=== PATIENT | male | born 1975 | race Caucasian/White ===

== ENCOUNTER 2016-11-13 08:51 | Emergency (ER) | payer OTHER ==
[2016-11-13 09:00] VITALS: RESP 16
[2016-11-13] MEDS ORDERED: TDAP ADULT 0.5 ML INJ (BOOSTRIX) IM ONE (09:01)
--- NOTE | 2016-11-13 09:10 | EDPHY ---
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 Patient describes both a crushing as well as a twisting/wringing injury to the finger. He was otherwise well prior to the event. No fever, chills, chest pain, shortness of breath, palpitations, vomiting, diarrhea, urinary complaints, headache, lightheadedness. REVIEW OF SYSTEMS: Aside from elements discussed in the HPI, a comprehensive 10-point review of systems was reviewed and is negative. PAST MEDICAL HISTORY: Patient denies. SOCIAL HISTORY: Smoker. GENERAL APPEARANCE: Pleasant, alert, conversant. States his pain is 4/10. FOCUSED EXAM OF left hand: Deep laceration with some maceration of the tissue is present just at the PIP joint the dorsal surface of the left index finger. Bleeding is well controlled. Sensation is not intact at the distal tip. Neurovascular exam: Brisk capillary refill. Smoking Status: Current every day smoker Constitutional: Initial Vital Signs Temperature (C) 37 C 11/13/16 08:52 Heart Rate 110 H 11/13/16 08:52 Respiratory Rate 16 11/13/16 08:52 Blood Pressure 154/102 H 11/13/16 08:52 O2 Sat (%) 96 11/13/16 08:52 O2 Delivery Mode Room Air Allergies/Adverse Reactions: No Known Allergies Allergy (Verified 11/13/16 09:00) Home Medications: Medication Instructions Recorded Cephalexin [Keflex (RX)] 500 mg PO QID 7 Days 11/13/16 Medical Decision Making - Diagnostics Imaging Results: Imaging Impressions Finger X-Ray 11/13/16 09:00 Impression: 1. Complex fracture distal tuft left second distal phalanx with fracture fragment extending to the base of the nailbed. Procedures: Procedure: Laceration repair. The 2.5 cm laceration on the left index finger was anesthetized using Marcaine without epinephrine. The wound was cleaned and irrigated per nursing and tech documentation. Laceration was then draped and explored. Laceration extends across the proximal nail bed. Proximal nail has been avulsed. Fracture fragments are visible in the wound. 6 mm sliver of bone was removed as it was protruding from the laceration. Nail was trimmed. Skin lacerations on the radial and ulnar aspect of the nail were sutured with 5 0 Ethilon, simple interrupted. Intact nail was sutured onto the ulnar side of the finger with 5 0 Ethilon. Nail bed was repaired with simple Vicryl suture. Quarter-inch NuGauze was placed under the epicondyle fold. Wound was dressed with a Adaptic nonadherent gauze, tube gauze dressing, and splinted with a aluminum splint. ED Course/Re-evaluation: Digital block performed. Patient tolerated this well. 0.5% bupivacaine without epinephrine. X-ray obtained. Xray: Finger x-ray was obtained. I viewed the images myself on the PACS system. My interpretation of the images is: Distal tuft fracture, no injury noted to the PIP joint. The radiology interpretation is: Pending. I discussed the results with the patient. Patient received an IM injection of Ancef. Further exploration of the patient's injury demonstrates open fracture, bone fragments removed from the laceration, avulsion of the proximal nail, nail was trimmed, laceration to the nail bed was repaired. X-rays were reviewed with the patient. I reviewed the procedures performed. Patient was placed in a tube gauze dressing as well as a splint which was adequately providing support. Patient was referred to Dr. Madhav Gramajo for follow-up. He does know that he needs to contact his workman's compensation insurance to see if there is a preferred work comp and surgeon for him to follow up with. Patient was placed on Keflex. Differential Diagnosis: Differential diagnosis for the patient's injury was considered including but not limited to contusion, abrasion, laceration, fracture, open fracture, or dislocation. - Data Points Medications Given: Discontinued Medications Cefazolin Sodium (Ancef) 1,000 mg IM ONCE ONE PRN Reason: Protocol Stop: 11/13/16 09:27 Last Admin: 11/13/16 09:39 Dose: 1,000 mg Diphtheria/Tetanus/Acell Pertussis (Boostrix) 0.5 ml IM .ONCE ONE Stop: 11/13/16 09:02 Last Admin: 11/13/16 09:08 Dose: 0.5 ml Cefazolin Sodium 1 gm/ Sodium (Chloride) 100 mls @ 400 mls/hr IV EDNOW ONE PRN Reason: Protocol Stop: 11/13/16 09:38 Last Admin: 11/13/16 09:42 Dose: Not Given Departure - Departure Disposition: Home, Routine, Self-Care Clinical Impression: Laceration, Open fracture of distal phalangeal tuft, Laceration of left index finger Laceration of nail bed of finger Qualifiers: Encounter type: initial encounter Qualified Code(s): S61.319A - Laceration without foreign body of unspecified finger with damage to nail, initial encounter Condition: Good Instructions: Finger Laceration (ED), Nail Avulsion (ED) Additional Instructions: 1. Please leave the dressing in place until you are seen by a hand surgeon. You should follow up within 2 days. 2. Please check with your workmen's compensation to see if there is a specific hand surgeon you need to see. Otherwise, you have been given referral to hand surgeon below. 3. Take antibiotics as directed. Keflex 500 mg by mouth 4 times a day. Your 1st dose was given in the emergency department as an intramuscular injection. 4. Okay to take ibuprofen as needed for pain. Keep the hand elevated will also help with any throbbing discomfort. 5. Return to the emergency department or seek care urgently if he develops fevers, significant bleeding through the dressing, increased pain, redness on your hand or up the arm, or other concerns. Referrals: NONE *PRIMARY CARE P,. [Primary Care Provider] - As per Instructions Madhav Gramajo MD [Medical Doctor] - As per Instructions (Call for follow up within 2 days.) Stand Alone Forms: Work Limited Duty, Work Comp Follow Up Prescriptions: Cephalexin [Keflex (RX)] 500 mg PO QID 7 Days
[2016-11-13] MEDS ORDERED: ceFAZolin 1 GM in NS 100 ML IV ONE (09:24)
[2016-11-13] MEDS ORDERED: CEFAZOLIN 330 MG/ML IM SYRINGE IM ONE (09:26)
[2016-11-13] MEDS ORDERED: ceFAZolin 1 GM VIAL ONE (09:28)
[2016-11-13 10:43] VITALS: BP 133/92; PULSE 89; TEMP 98.4; O2SAT 94
== END 2016-11-13 10:38 | disposition home or self-care (01) ==
LOC: CED 08:51
PROC: 0HQQXZZ Repair Finger Nail, External Approach (ICD-10-PCS; principal; 2016-11-13)
DX: S62.631B Displaced fracture of distal phalanx of left index finger, initial encounter for open fracture (principal); S61.211A Laceration without foreign body of left index finger without damage to nail, initial encounter; F17.200 Nicotine dependence, unspecified, uncomplicated; Z23 Encounter for immunization; W31.2XXA Contact with powered woodworking and forming machines, initial encounter; Y92.69 Other specified industrial and construction area as the place of occurrence of the external cause; Y99.0 Civilian activity done for income or pay; Y93.89 Activity, other specified
CPT/HCPCS: 73140-PO; J0690; L3925